=== PATIENT | male | born 1995 | race American Indian/Alaskan Native ===

== ENCOUNTER 2017-09-18 18:24 | Emergency (ER) | payer OTHER ==
[2017-09-18 18:49] VITALS: BP 140/75
--- NOTE | 2017-09-18 18:55 | EDM.PDOC ---
ED HPI GENERAL MEDICAL PROBLEM - General Chief Complaint: ENT Problem Stated Complaint: [id number] POSSIBLY STREP THROAT Time Seen by Provider: 09/18/17 18:54 Source of Information: Reports: Patient History Limitations: Reports: No Limitations - History of Present Illness INITIAL COMMENTS - FREE TEXT/NARRATIVE: sore throat & cough since Sunday, not getting better Throat Pain Score (Numeric/FACES): 4 - Related Data Allergies Allergy/AdvReac Type Severity Reaction Status Date / Time No Known Allergies Allergy Verified 06/26/15 08:39 Home Meds: Home Meds . [No Known Home Meds] 06/26/15 [History] Past Medical History - Past Health History Medical/Surgical History: Denies Medical/Surgical History Social & Family History - Family History Family Medical History: Noncontributory - Tobacco Use Smoking Status *Q: Never Smoker Second Hand Smoke Exposure: Yes - Caffeine Use Caffeine Use: Reports: Soda - Living Situation & Occupation Living situation: Reports: Single, with Family Occupation: Student ED ROS ENT - Review of Systems Review Of Systems: ROS reveals no pertinent complaints other than HPI. ED EXAM, ENT - Physical Exam Exam: See Below Exam Limited By: No Limitations General Appearance: Alert, WD/WN, Mild Distress, Other (upset) Ears: Hearing Grossly Normal Nose: Normal Inspection Mouth/Throat: Pharyngeal Erythema, Tonsillar Erythema, Tonsillar Swelling Head: Atraumatic Neck: Non-Tender, Full Range of Motion Respiratory/Chest: No Respiratory Distress, Lungs Clear, Normal Breath Sounds, No Accessory Muscle Use Cardiovascular: Regular Rate, Rhythm GI/Abdominal: Soft, Non-Tender Neurological: Alert, Oriented, Normal Cognition, Normal Gait, No Motor/Sensory Deficits Psychiatric: Flat Affect Skin: Warm, Dry, Normal Color Lymphatic: No Adenopathy Course - Vital Signs Last Recorded V/S: Last Vital Signs Temp 37.0 C 09/18/17 18:34 Pulse 92 09/18/17 18:34 Resp 16 09/18/17 18:34 BP 140/75 09/18/17 18:34 Pulse Ox 100 09/18/17 18:34 - Orders/Labs/Meds Orders: Active Orders 24 hr Category Date Time Status CULTURE STREP A CONFIRMATION [RM] Stat Lab 09/18/17 18:43 Results STREP SCRN A RAPID W CULT CONF [RM] Stat Lab 09/18/17 18:43 Results Amoxicillin [Amoxil] Med 09/18/17 19:45 Once 500 mg PO ONETIME ONE - Re-Assessments/Exams Free Text/Narrative Re-Assessment/Exam: 09/18/17 19:46 results discussed with pt Departure - Departure Time of Disposition: 19:46 Disposition: Home, Self-Care 01 Condition: Good Clinical Impression: Tonsillitis - Discharge Information Instructions: Tonsillitis, [id number] Referrals: PCP,None [Primary Care Provider] - Forms: ED Department Discharge Additional Instructions: 1) avoid solid foods next 48 hours 2) have liquids & soft foods. 3) follow up at clinic rx given; amox 250mg tid x 30 - My Orders Last 24 Hours: My Active Orders 09/18/17 19:45 Amoxicillin [Amoxil] 500 mg PO ONETIME ONE - Assessment/Plan Last 24 Hours: My Active Orders 09/18/17 19:45 Amoxicillin [Amoxil] 500 mg PO ONETIME ONE
[2017-09-18] MEDS ORDERED: Amoxicillin 500 MG Cap PO ONE (19:45)
== END 2017-09-18 19:54 | disposition home or self-care (01) ==
LOC: DL.ED 18:24
DX: J03.90 Acute tonsillitis, unspecified (principal)
CPT/HCPCS: 87081; 87430; 99283; A9270

== ENCOUNTER 2018-06-30 11:39 | Emergency (ER) | payer MEDICAID, OTHER ==
[2018-06-30 12:04] VITALS: BP 132/87
--- NOTE | 2018-06-30 13:22 | EDM.PDOC ---
ED HPI GENERAL MEDICAL PROBLEM - General Chief Complaint: Respiratory Problem Stated Complaint: THROAT AND LUNGS [id number] Time Seen by Provider: 06/30/18 13:20 Source of Information: Reports: Patient History Limitations: Reports: No Limitations - History of Present Illness INITIAL COMMENTS - FREE TEXT/NARRATIVE: been sick few days sister is sick, coughing sore throat feverish. - Related Data Allergies Allergy/AdvReac Type Severity Reaction Status Date / Time No Known Allergies Allergy Verified 06/30/18 12:04 Home Meds: Home Meds . [No Known Home Meds] 06/26/15 [History] Past Medical History - Past Health History Medical/Surgical History: Denies Medical/Surgical History Social & Family History - Family History Family Medical History: Noncontributory - Tobacco Use Smoking Status *Q: Never Smoker Second Hand Smoke Exposure: Yes - Caffeine Use Caffeine Use: Reports: Soda - Recreational Drug Use Recreational Drug Use: No - Living Situation & Occupation Living situation: Reports: Single, with Family Occupation: Student ED ROS GENERAL - Review of Systems Review Of Systems: ROS reveals no pertinent complaints other than HPI. ED EXAM, GENERAL - Physical Exam Exam: See Below Exam Limited By: No Limitations General Appearance: Alert, WD/WN, No Apparent Distress, Anxious Ears: Hearing Grossly Normal Throat/Mouth: Normal Voice, No Airway Compromise, Inflammation Head: Atraumatic Neck: Non-Tender, Full Range of Motion Respiratory/Chest: No Respiratory Distress Cardiovascular: Regular Rate, Rhythm GI/Abdominal: Soft, Non-Tender Neurological: Alert, Oriented, Normal Cognition, Normal Gait, No Motor/Sensory Deficits Psychiatric: Flat Affect Skin Exam: Warm, Dry, Normal Color Lymphatic: No Adenopathy Course - Vital Signs Last Recorded V/S: Last Vital Signs Temp 36.3 C 06/30/18 12:00 Pulse 89 06/30/18 12:00 Resp 18 06/30/18 12:00 BP 132/87 06/30/18 12:00 Pulse Ox 96 06/30/18 12:00 - Orders/Labs/Meds Orders: Active Orders 24 hr Category Date Time Status CULTURE STREP A CONFIRMATION [] Stat Lab 06/30/18 12:14 Results STREP SCRN A RAPID W CULT CONF [RM] Stat Lab 06/30/18 12:14 Results - Re-Assessments/Exams Free Text/Narrative Re-Assessment/Exam: 06/30/18 13:30 results discussed with pt Departure - Departure Time of Disposition: 13:31 Disposition: Home, Self-Care 01 Condition: Good Clinical Impression: Acute bronchitis with bronchospasm, Tonsillopharyngitis - Discharge Information Instructions: Upper Respiratory Infection, Adult, [id number] Forms: ED Department Discharge Additional Instructions: 1) rest 2) drink lots of liquids 3) don't sleep flat at night rx given; albuterol 2.5mg solution tid prn z-codey - My Orders Last 24 Hours: My Active Orders 06/30/18 12:14 CULTURE STREP A CONFIRMATION [RM] Stat STREP SCRN A RAPID W CULT CONF [RM] Stat - Assessment/Plan Last 24 Hours: My Active Orders 06/30/18 12:14 CULTURE STREP A CONFIRMATION [RM] Stat STREP SCRN A RAPID W CULT CONF [RM] Stat
== END 2018-06-30 13:36 | disposition home or self-care (01) ==
LOC: DL.ED 11:39
DX: J20.9 Acute bronchitis, unspecified (principal); J03.90 Acute tonsillitis, unspecified; Z77.22 Contact with and (suspected) exposure to environmental tobacco smoke (acute) (chronic)
CPT/HCPCS: 87081; 87430; 87804; 99283

== ENCOUNTER 2020-02-07 11:53 | Emergency (ER) | payer MEDICAID | END 2020-02-07 14:28 | disposition home or self-care (01) | LOC: DL.ED 11:53 | DX: U07.1 COVID-19 (principal) | CPT/HCPCS: 99282; 99283; U0002 ==

== ENCOUNTER 2020-02-14 18:42 | Inpatient (IN) | payer MEDICAID ==
[2020-02-14] MEDS ORDERED: Dexamethasone 4 MG/ML SDV IVPUSH ONE (18:45)
--- NOTE | 2020-02-14 18:53 | EDM.PDOC ---
ED HPI GENERAL MEDICAL PROBLEM - General Stated Complaint: COVID - CHEST XRAY Time Seen by Provider: 02/14/20 18:50 Source of Information: Reports: Patient History Limitations: Reports: No Limitations - History of Present Illness INITIAL COMMENTS - FREE TEXT/NARRATIVE: positive covid last Sunday not getting better and now having SOB and chest hurts covid nurse told him to come to ER. PT FULL CODE - Related Data Allergies Allergy/AdvReac Type Severity Reaction Status Date / Time No Known Allergies Allergy Verified 06/30/18 12:04 Home Meds: Home Meds . [No Known Home Meds] 06/26/15 [History] Past Medical History - Past Health History Medical/Surgical History: Denies Medical/Surgical History HEENT History: Reports: None Cardiovascular History: Reports: None Respiratory History: Reports: None Gastrointestinal History: Reports: None Genitourinary History: Reports: None Musculoskeletal History: Reports: None Neurological History: Reports: None Psychiatric History: Reports: None Endocrine/Metabolic History: Reports: None Hematologic History: Reports: None Immunologic History: Reports: None Oncologic (Cancer) History: Reports: None Dermatologic History: Reports: None - Infectious Disease History Infectious Disease History: Reports: None - Past Surgical History Head Surgeries/Procedures: Reports: None Social & Family History - Family History Family Medical History: Noncontributory - Caffeine Use Caffeine Use: Reports: Coffee - Living Situation & Occupation Living situation: Reports: Single, with Family Occupation: Student ED ROS GENERAL - Review of Systems Review Of Systems: Comprehensive ROS is negative, except as noted in HPI. ED EXAM, GENERAL - Physical Exam Exam: See Below Exam Limited By: No Limitations General Appearance: Alert, WD/WN, Mild Distress, Other (discomfort) Ears: Hearing Grossly Normal Throat/Mouth: Normal Voice, No Airway Compromise Head: Atraumatic Neck: Non-Tender, Full Range of Motion Respiratory/Chest: No Respiratory Distress, No Accessory Muscle Use, Rhonchi Cardiovascular: Regular Rate, Rhythm GI/Abdominal: Soft, Non-Tender (Male) Exam: Deferred Rectal (Males) Exam: Deferred Neurological: Alert, Oriented, Normal Cognition, Normal Gait, No Motor/Sensory D eficits Psychiatric: Normal Affect, Normal Mood Skin Exam: Warm, Dry, Normal Color Lymphatic: No Adenopathy Course - Vital Signs Last Recorded V/S: Last Vital Signs Temp 36.6 C 02/14/20 19:15 Pulse 98 02/14/20 19:15 Resp 20 02/14/20 19:15 BP 129/75 02/14/20 19:15 Pulse Ox 92 L 02/14/20 19:15 - Orders/Labs/Meds Orders: Active Orders 24 hr Category Date Time Status CULTURE BLOOD [BC] Stat Lab 02/14/20 19:02 Received Sodium Chloride 0.9% [Normal Saline] 1,000 ml Med 02/14/20 18:45 Active IV ASDIRECTED Medication Orders Sodium Chloride (Normal Saline) 1,000 mls @ 150 mls/hr IV ASDIRECTED MICHELLE Last Admin: 02/14/20 19:09 Dose: 150 mls/hr Documented by: ANDREW Labs: Laboratory Tests 02/14/20 02/14/20 02/14/20 Range/Units 19:02 19:02 19:02 WBC 6.0 (5.0-10.0) 10^3/uL RBC 5.88 (4.6-6.2) 10^6/uL Hgb 16.7 (14.0-18.0) g/dL Hct 47.5 (40.0-54.0) % MCV 80.8 (80-100) fL MCH 28.4 (27.0-34.0) pg MCHC 35.2 H (33.0-35.0) g/dL Plt Count 165 (150-450) 10^3/uL Neut % (Auto) 66.8 (42.2-75.2) % Lymph % (Auto) 20.6 (20.5-50.1) % [place] % (Auto) 12.1 H (2-8) % Eos % (Auto) 0.3 L (1.0-3.0) % Baso % (Auto) 0.2 (0.0-1.0) % Add Manual Diff Yes Neutrophils % (Manual) 63 (42-75) % Band Neutrophils % 4 % Lymphocytes % (Manual) 22 (20-50) % Monocytes % (Manual) 10 H (2-8) % Eosinophils % (Manual) 1 (1-3) % Sodium 136 (136-145) mmol/L Potassium 3.1 L (3.5-5.1) mmol/L Chloride 99 (98-107) mmol/L Carbon Dioxide 28 (21-32) mmol/L Anion Gap 12.1 (7-13) mEq/L BUN 21 H (7-18) mg/dL Creatinine 0.99 (0.70-1.30) mg/dL Est Cr Clr Drug Dosing TNP Estimated GFR (MDRD) > 60 BUN/Creatinine Ratio 21.2 (No establ ref range) Glucose 124 H (74-99) mg/dL Lactic Acid 0.9 (0.4-2.0) mmol/L Calcium 8.3 L (8.5-10.1) mg/dL Total Bilirubin 0.9 (0.2-1.0) mg/dL AST 37 (15-37) U/L ALT 41 (16-63) U/L Alkaline Phosphatase 88 (46-116) U/L Troponin I (0.000-0.056) ng/mL Total Protein 7.6 (6.4-8.2) g/dL Albumin 3.5 (3.4-5.0) g/dL Globulin 4.1 Albumin/Globulin Ratio 0.9 10/24/20 Range/Units 19:02 WBC (5.0-10.0) 10^3/uL RBC (4.6-6.2) 10^6/uL Hgb (14.0-18.0) g/dL Hct (40.0-54.0) % MCV (80-100) fL MCH (27.0-34.0) pg MCHC (33.0-35.0) g/dL Plt Count (150-450) 10^3/uL Neut % (Auto) (42.2-75.2) % Lymph % (Auto) (20.5-50.1) % [place] % (Auto) (2-8) % Eos % (Auto) (1.0-3.0) % Baso % (Auto) (0.0-1.0) % Add Manual Diff Neutrophils % (Manual) (42-75) % Band Neutrophils % % Lymphocytes % (Manual) (20-50) % Monocytes % (Manual) (2-8) % Eosinophils % (Manual) (1-3) % Sodium (136-145) mmol/L Potassium (3.5-5.1) mmol/L Chloride (98-107) mmol/L Carbon Dioxide (21-32) mmol/L Anion Gap (7-13) mEq/L BUN (7-18) mg/dL Creatinine (0.70-1.30) mg/dL Est Cr Clr Drug Dosing Estimated GFR (MDRD) BUN/Creatinine Ratio (No establ ref range) Glucose (74-99) mg/dL Lactic Acid (0.4-2.0) mmol/L Calcium (8.5-10.1) mg/dL Total Bilirubin (0.2-1.0) mg/dL AST (15-37) U/L ALT (16-63) U/L Alkaline Phosphatase (46-116) U/L Troponin I < 0.017 (0.000-0.056) ng/mL Total Protein (6.4-8.2) g/dL Albumin (3.4-5.0) g/dL Globulin Albumin/Globulin Ratio Meds: Medications Generic Name Dose Route Start Last Admin Trade Name Freq PRN Reason Stop Dose Admin Sodium Chloride 1,000 mls @ 150 mls/hr 02/14/20 18:45 02/14/20 19:09 Normal Saline IV 150 mls/hr ASDIRECTED MICHELLE Administration Discontinued Medications Generic Name Dose Route Start Last Admin Trade Name Freq PRN Reason Stop Dose Admin Dexamethasone 12 mg 02/14/20 18:45 02/14/20 19:09 Dexamethasone IVPUSH 02/14/20 18:46 12 mg ONETIME ONE Administration - Re-Assessments/Exams Free Text/Narrative Re-Assessment/Exam: 02/14/20 20:[address] Leonard who kindly admitted pt. Departure - Departure Time of Disposition: 20:38 Disposition: Admitted As Inpatient 66 Condition: Good Clinical Impression: Pneumonia due to COVID-19 virus, Hypokalemia - Discharge Information Forms: ED Department Discharge Sepsis Event Note (ED) - Focused Exam Vital Signs: Vital Signs Temp Pulse Resp BP Pulse Ox 02/14/20 19:15 36.6 C 98 20 129/75 92 L - My Orders Last 24 Hours: My Active Orders 02/14/20 18:45 Sodium Chloride 0.9% [Normal Saline] 1,000 ml IV ASDIRECTED 02/14/20 19:02 CULTURE BLOOD [BC] Stat - Assessment/Plan Last 24 Hours: My Active Orders 02/14/20 18:45 Sodium Chloride 0.9% [Normal Saline] 1,000 ml IV ASDIRECTED 02/14/20 19:02 CULTURE BLOOD [BC] Stat
[2020-02-14] MEDS: Sodium Chloride 0.9% 1,000 ML IV SCH (19:09)
[2020-02-14 19:30] LABS: ANION GAP 12.1 mEq/L (7-13); CHLORIDE,CL 99 mmol/L (98-107); SODIUM,NA 136 mmol/L (136-145)
--- NOTE | 2020-02-14 19:55 | CT ---
PROCEDURE INFORMATION: Exam: CT Chest Without Contrast Exam date and time: 02/14/2020 7:24 PM Age: 24 years old Clinical indication: Cough and shortness of breath; Additional info: R/O covid pneumonia TECHNIQUE: Imaging protocol: Computed tomography of the chest without contrast. Radiation optimization: All CT scans at this facility use at least one of these dose optimization techniques: automated exposure control; mA and/or kV adjustment per patient size (includes targeted exams where dose is matched to clinical indication); or iterative reconstruction. COMPARISON: No relevant prior studies available. FINDINGS: Lungs: Lung windows show bilateral ground-glass and alveolar opacities, mainly seen at the periphery of the lungs and especially in the lower lobes. The central airways are widely patent. Pleural space: There are no pleural effusions. There is no pneumothorax. Heart: The heart size is normal. There is no pericardial effusion. Aorta: The thoracic aorta is normal in caliber and contour. Lymph nodes: No pathologically enlarged mediastinal, hilar or axillary lymph nodes are identified. Bones/joints: There is normal alignment throughout the visualized portion of the spine. No acute fractures or aggressive bone lesions are identified. Soft tissues: Within normal limits. IMPRESSION: Bilateral peripheral ground-glass and alveolar opacities consistent with COVID-19 pneumonia.
--- NOTE | 2020-02-14 21:24 | PCM.HP ---
H&P History of Present Illness - General Date of Service: 02/14/20 Admit Problem/Dx: Admission Diagnosis/Problem Admission Diagnosis/Problem Positive COVID-19 with Pneumonia Source of Information: Patient, Old Records History Limitations: Reports: No Limitations - History of Present Illness Initial Comments - Free Text/Narative: This is a 24 Y/O M with no significant past medical history came to ER with complain of increased shortness of breath galen chest heaviness, he is tested positive covid last Sunday ( 02/07/20) , has not received and treatment for COVID , not getting better and was told by covid nurse to come to ER. He had CT chest in ER and it showed B/L peripheral ground-glass and alveolar opacities consistent with COVID-19 pneumonia. He is now admitted for Covid-19 Pneumonia. Onset of Symptoms: Reports: Gradual Duration of Symptoms: Reports: Day(s): Quality: Reports: Pressure - Related Data Allergies/Adverse Reactions: Allergies Allergy/AdvReac Type Severity Reaction Status Date / Time No Known Allergies Allergy Verified 06/30/18 12:04 Home Medications: Home Meds . [No Known Home Meds] 06/26/15 [History] Past Medical History - Past Health History Medical/Surgical History: Denies Medical/Surgical History HEENT History: Reports: None Cardiovascular History: Reports: None Respiratory History: Reports: None Gastrointestinal History: Reports: None Genitourinary History: Reports: None Musculoskeletal History: Reports: None Neurological History: Reports: None Psychiatric History: Reports: None Endocrine/Metabolic History: Reports: None Hematologic History: Reports: None Immunologic History: Reports: None Oncologic (Cancer) History: Reports: None Dermatologic History: Reports: None - Infectious Disease History Infectious Disease History: Reports: None Other Infectious Disease History: covid - Past Surgical History Head Surgeries/Procedures: Reports: None Social & Family History - Family History Family Medical History: Noncontributory - Tobacco Use Tobacco Use Status *Q: Never Tobacco User Second Hand Smoke Exposure: No - Caffeine Use Caffeine Use: Reports: Coffee - Recreational Drug Use Recreational Drug Use: No - Living Situation & Occupation Living situation: Reports: Single, with Family Occupation: Student H&P Review of Systems - Review of Systems: Review Of Systems: See Below General: Reports: Fever (low grade), Weakness HEENT: Denies: Headaches, Sinus Congestion, Sore Throat, Visual Changes Cardiovascular: Denies: Chest Pain, Edema, Lightheadedness Gastrointestinal: Denies: Diarrhea, Difficulty Swallowing, Nausea, Vomiting Genitourinary: Denies: Dysuria, Burning, Urgency, Flank Pain Musculoskeletal: Denies: Neck Pain, Shoulder Pain, Leg Pain, Muscle Stiffness Skin: Denies: Cyanosis, Jaundice, Bruising, Pruritis, Rash Psychiatric: Denies: Confusion, Anxiety Neurological: Denies: Confusion, Tremors, Weakness Hematologic/Lymphatic: Reports: No Symptoms Immunologic: Reports: No Symptoms Exam - Exam Exam: See Below - Vital Signs Vital Signs: Last Vital Signs Temp 36.6 C 02/14/20 19:15 Pulse 99 02/14/20 20:37 Resp 20 02/14/20 20:37 BP 129/75 02/14/20 19:15 Pulse Ox 96 02/14/20 20:37 Weight: 99.79 kg - Exam Quality Assessment: Supplemental Oxygen, DVT Prophylaxis. No: Urinary Catheter General: Alert, Oriented, Cooperative HEENT: Conjunctiva Clear, EOMI, Pupils Equal Neck: Supple. No: JVD, Thyromegaly Lungs: Clear to Auscultation, Normal Respiratory Effort, Decreased Breath Sounds Cardiovascular: Regular Rate, Regular Rhythm GI/Abdominal Exam: Normal Bowel Sounds, No Distention. No: Rigid, Rebound (Male) Exam: Deferred Rectal (Males) Exam: Normal Exam, Normal Rectal Tone, Deferred Back Exam: Normal Inspection, Full Range of Motion Extremities: Normal Inspection, No Pedal Edema Skin: Warm, Intact Neurological: Cranial Nerves Intact, Reflexes Equal Bilateral Neuro Extensive - Mental Status: Alert, Oriented x3, Normal Mood/Affect, Memory Intact Neuro Extensive - Motor, Sensory, Reflexes: CN II-XII Intact, Normal Gait, Normal Reflexes Psychiatric: Alert, Normal Affect, Normal Mood - Patient Data Lab Results Last 24 hrs: Laboratory Results - last 24 hr 02/14/20 02/14/20 02/14/20 Range/Units 19:02 19:02 19:02 WBC 6.0 (5.0-10.0) 10^3/uL RBC 5.88 (4.6-6.2) 10^6/uL Hgb 16.7 (14.0-18.0) g/dL Hct 47.5 (40.0-54.0) % MCV 80.8 (80-100) fL MCH 28.4 (27.0-34.0) pg MCHC 35.2 H (33.0-35.0) g/dL Plt Count 165 (150-450) 10^3/uL Neut % (Auto) 66.8 (42.2-75.2) % Lymph % (Auto) 20.6 (20.5-50.1) % [place] % (Auto) 12.1 H (2-8) % Eos % (Auto) 0.3 L (1.0-3.0) % Baso % (Auto) 0.2 (0.0-1.0) % Add Manual Diff Yes Neutrophils % (Manual) 63 (42-75) % Band Neutrophils % 4 % Lymphocytes % (Manual) 22 (20-50) % Monocytes % (Manual) 10 H (2-8) % Eosinophils % (Manual) 1 (1-3) % Sodium 136 (136-145) mmol/L Potassium 3.1 L (3.5-5.1) mmol/L Chloride 99 (98-107) mmol/L Carbon Dioxide 28 (21-32) mmol/L Anion Gap 12.1 (7-13) mEq/L BUN 21 H (7-18) mg/dL Creatinine 0.99 (0.70-1.30) mg/dL Est Cr Clr Drug Dosing TNP Estimated GFR (MDRD) > 60 BUN/Creatinine Ratio 21.2 (No establ ref range) Glucose 124 H (74-99) mg/dL Lactic Acid 0.9 (0.4-2.0) mmol/L Calcium 8.3 L (8.5-10.1) mg/dL Total Bilirubin 0.9 (0.2-1.0) mg/dL AST 37 (15-37) U/L ALT 41 (16-63) U/L Alkaline Phosphatase 88 (46-116) U/L Troponin I (0.000-0.056) ng/mL Total Protein 7.6 (6.4-8.2) g/dL Albumin 3.5 (3.4-5.0) g/dL Globulin 4.1 Albumin/Globulin Ratio 0.9 10/24/20 Range/Units 19:02 WBC (5.0-10.0) 10^3/uL RBC (4.6-6.2) 10^6/uL Hgb (14.0-18.0) g/dL Hct (40.0-54.0) % MCV (80-100) fL MCH (27.0-34.0) pg MCHC (33.0-35.0) g/dL Plt Count (150-450) 10^3/uL Neut % (Auto) (42.2-75.2) % Lymph % (Auto) (20.5-50.1) % [place] % (Auto) (2-8) % Eos % (Auto) (1.0-3.0) % Baso % (Auto) (0.0-1.0) % Add Manual Diff Neutrophils % (Manual) (42-75) % Band Neutrophils % % Lymphocytes % (Manual) (20-50) % Monocytes % (Manual) (2-8) % Eosinophils % (Manual) (1-3) % Sodium (136-145) mmol/L Potassium (3.5-5.1) mmol/L Chloride (98-107) mmol/L Carbon Dioxide (21-32) mmol/L Anion Gap (7-13) mEq/L BUN (7-18) mg/dL Creatinine (0.70-1.30) mg/dL Est Cr Clr Drug Dosing Estimated GFR (MDRD) BUN/Creatinine Ratio (No establ ref range) Glucose (74-99) mg/dL Lactic Acid (0.4-2.0) mmol/L Calcium (8.5-10.1) mg/dL Total Bilirubin (0.2-1.0) mg/dL AST (15-37) U/L ALT (16-63) U/L Alkaline Phosphatase (46-116) U/L Troponin I < 0.017 (0.000-0.056) ng/mL Total Protein (6.4-8.2) g/dL Albumin (3.4-5.0) g/dL Globulin Albumin/Globulin Ratio Result Diagrams: 02/14/20 19:02 02/14/20 19:02 - Problem List (1) Pneumonia due to COVID-19 virus SNOMED Code(s): 725741336614007492 ICD Code: U07.1 - COVID-19; J12.89 - OTHER VIRAL PNEUMONIA Status: Acute Current Visit: No Problem List Initiated/Reviewed/Updated: Yes Orders Last 24hrs: Active Orders 24 hr Category Date Time Status Admission Diagnosis [ADT] Stat ADT 02/14/20 20:39 Ordered Admission Status [Patient Status] [ADT] Routine ADT 02/14/20 20:39 Active CULTURE BLOOD [BC] Stat Lab 02/14/20 19:02 Received Sodium Chloride 0.9% [Normal Saline] 1,000 ml Med 02/14/20 18:45 Active IV ASDIRECTED Medication Orders Sodium Chloride (Normal Saline) 1,000 mls @ 150 mls/hr IV ASDIRECTED MICHELLE Last Admin: 02/14/20 19:09 Dose: 150 mls/hr Documented by: ANDREW Assessment/Plan Comment:: This is a 24 Y/O M with no significant past medical history came to ER with complain of increased shortness of breath galen chest heaviness, he is tested positive covid last Sunday ( 02/07/20) , has not received and treatment for COVID , not getting better and was told by covid nurse to come to ER. He had CT chest in ER and it showed B/L peripheral ground-glass and alveolar opacities consistent with COVID-19 pneumonia. He is now admitted for Covid-19 Pneumonia. Impression and Plan: 1. Covid-19 pneumonia: The pt was dxed with COVOD-19 on last Sunday ( 02/07/20) and has not received any treatment but now his symptom getting worseCT chest consistent with COVID-19 pneumonia -Will admit in isolation room -Will contiue NC oxygen to keep 02 sat >90 -Discuss with pt about starting treatment with Redisivir and Dexamethasone -He has received a dose of Dexamethasone 12 mg IV push in ER -Will also start Levofloxacin 750 mg IV daily -Will check daily Covid Lab 2. Hypokalemia: Will give potassium chloride 40 meq now and another 20 meq 2 hrs larer -Recheck potassium in AM 3. DVT prophylaxis: Heparin 5000 units TID Code Status: Full code
[2020-02-14] MEDS ORDERED: Docusate Sodium 100 MG Cap PO PRN (21:47)
[2020-02-14] MEDS ORDERED: Potassium Chloride 10 MEQ Tab.ER PO ONE (22:21)
[2020-02-14] MEDS: Levofloxacin/Dextrose 5%-Water 750 MG in Premix Bag 1 BAG IV SCH (23:07)
[2020-02-14] MEDS: Acetaminophen 325 MG Tab PO PRN (23:08)
[2020-02-14] MEDS: Heparin Sodium 5,000 Units/ML Vial SUBCUT SCH (23:09)
[2020-02-15] MEDS: Sodium Chloride 0.9% 1,000 ML IV SCH ×3 (05:45→19:33)
[2020-02-15] MEDS: Heparin Sodium 5,000 Units/ML Vial SUBCUT SCH ×3 (05:46→21:57)
[2020-02-15 07:00] LABS: ANION GAP 11.1 mEq/L (7-13); CHLORIDE,CL 103 mmol/L (98-107); SODIUM,NA 139 mmol/L (136-145)
[2020-02-15] MEDS: Dexamethasone 4 MG/ML SDV IVPUSH SCH (08:34)
--- NOTE | 2020-02-15 14:37 | PCM.PN ---
- General Info Date of Service: 02/15/20 Admission Dx/Problem (Free Text): Admission Diagnosis/Problem Admission Diagnosis/Problem Positive COVID-19 with Pneumonia Subjective Update: Pt was seen in Isolation room, He is doing well, No nausea or vomiting still on NC oxygen, no fever or chill Functional Status: Reports: Pain Controlled, Tolerating Diet, Ambulating, Urinating - Review of Systems General: Reports: Malaise, Appetite (good). Denies: Fever HEENT: Denies: Headaches, Sinus Congestion, Sore Throat, Visual Changes Pulmonary: Reports: Shortness of Breath. Denies: Cough, Wheezing Cardiovascular: Denies: Chest Pain, Dyspnea on Exertion, Lightheadedness Gastrointestinal: Denies: Abdominal Pain, Difficulty Swallowing, Nausea, Vomiting Genitourinary: Denies: Dysuria, Frequency, Flank Pain Musculoskeletal: Denies: Neck Pain, Leg Pain, Foot Pain, Joint Swelling Skin: Denies: Cyanosis, Jaundice, Diaphoresis, Bruising, Pruritis, Rash Neurological: Denies: Confusion, Numbness, Tremors Psychiatric: Denies: Confusion, Anxiety - Patient Data Vitals - Most Recent: Last Vital Signs Temp 37.2 C 02/15/20 12:00 Pulse 89 02/15/20 12:00 Resp 20 02/15/20 12:00 BP 126/80 02/15/20 12:00 Pulse Ox 97 02/15/20 12:00 Weight - Most Recent: 99.79 kg I&O - Last 24 Hours: Intake & Output 02/14/20 02/15/20 02/15/20 22:59 06:59 14:59 Intake Total 1480 360 Balance 1480 360 Lab Results Last 24 Hours: Laboratory Results - last 24 hr 02/14/20 02/14/20 02/14/20 Range/Units 19:02 19:02 19:02 WBC 6.0 (5.0-10.0) 10^3/uL RBC 5.88 (4.6-6.2) 10^6/uL Hgb 16.7 (14.0-18.0) g/dL Hct 47.5 (40.0-54.0) % MCV 80.8 (80-100) fL MCH 28.4 (27.0-34.0) pg MCHC 35.2 H (33.0-35.0) g/dL Plt Count 165 (150-450) 10^3/uL Neut % (Auto) 66.8 (42.2-75.2) % Lymph % (Auto) 20.6 (20.5-50.1) % [place] % (Auto) 12.1 H (2-8) % Eos % (Auto) 0.3 L (1.0-3.0) % Baso % (Auto) 0.2 (0.0-1.0) % Add Manual Diff Yes Neutrophils % (Manual) 63 (42-75) % Band Neutrophils % 4 % Lymphocytes % (Manual) 22 (20-50) % Monocytes % (Manual) 10 H (2-8) % Eosinophils % (Manual) 1 (1-3) % Sodium 136 (136-145) mmol/L Potassium 3.1 L (3.5-5.1) mmol/L Chloride 99 (98-107) mmol/L Carbon Dioxide 28 (21-32) mmol/L Anion Gap 12.1 (7-13) mEq/L BUN 21 H (7-18) mg/dL Creatinine 0.99 (0.70-1.30) mg/dL Est Cr Clr Drug Dosing TNP Estimated GFR (MDRD) > 60 BUN/Creatinine Ratio 21.2 (No establ ref range) Glucose 124 H (74-99) mg/dL Lactic Acid 0.9 (0.4-2.0) mmol/L Calcium 8.3 L (8.5-10.1) mg/dL Total Bilirubin 0.9 (0.2-1.0) mg/dL AST 37 (15-37) U/L ALT 41 (16-63) U/L Alkaline Phosphatase 88 (46-116) U/L Troponin I (0.000-0.056) ng/mL Total Protein 7.6 (6.4-8.2) g/dL Albumin 3.5 (3.4-5.0) g/dL Globulin 4.1 Albumin/Globulin Ratio 0.9 02/14/20 02/15/20 02/15/20 Range/Units 19:02 06:18 06:18 WBC 3.6 L (5.0-10.0) 10^3/uL RBC 5.61 (4.6-6.2) 10^6/uL Hgb 15.7 (14.0-18.0) g/dL Hct 45.7 (40.0-54.0) % MCV 81.5 (80-100) fL MCH 28.0 (27.0-34.0) pg MCHC 34.4 (33.0-35.0) g/dL Plt Count 183 (150-450) 10^3/uL Neut % (Auto) 63.6 (42.2-75.2) % Lymph % (Auto) 21.5 (20.5-50.1) % [place] % (Auto) 14.6 H (2-8) % Eos % (Auto) 0.0 L (1.0-3.0) % Baso % (Auto) 0.3 (0.0-1.0) % Add Manual Diff Neutrophils % (Manual) (42-75) % Band Neutrophils % % Lymphocytes % (Manual) (20-50) % Monocytes % (Manual) (2-8) % Eosinophils % (Manual) (1-3) % Sodium 139 (136-145) mmol/L Potassium 4.1 (3.5-5.1) mmol/L Chloride 103 (98-107) mmol/L Carbon Dioxide 29 (21-32) mmol/L Anion Gap 11.1 (7-13) mEq/L BUN 20 H (7-18) mg/dL Creatinine 0.88 (0.70-1.30) mg/dL Est Cr Clr Drug Dosing 150.49 Estimated GFR (MDRD) > 60 BUN/Creatinine Ratio (No establ ref range) Glucose 116 H (74-99) mg/dL Lactic Acid (0.4-2.0) mmol/L Calcium 8.3 L (8.5-10.1) mg/dL Total Bilirubin (0.2-1.0) mg/dL AST (15-37) U/L ALT (16-63) U/L Alkaline Phosphatase (46-116) U/L Troponin I < 0.017 (0.000-0.056) ng/mL Total Protein (6.4-8.2) g/dL Albumin (3.4-5.0) g/dL Globulin Albumin/Globulin Ratio Med Orders - Current: Current Medications Acetaminophen (Tylenol) 650 mg PO Q4H PRN PRN Reason: Pain (mild 1-3 )/fever Last Admin: 10/24/20 23:08 Dose: 650 mg Documented by: Dexamethasone (Dexamethasone) 6 mg IVPUSH DAILY [facility] Last Admin: 02/15/20 08:34 Dose: 6 mg Documented by: Docusate Sodium (Colace) 100 mg PO DAILY PRN PRN Reason: Constipation Heparin Sodium (Porcine) (Heparin Sodium) 5,000 units SUBCUT Q8H [facility] Last Admin: 02/15/20 13:44 Dose: 5,000 units Documented by: Sodium Chloride (Normal Saline) 1,000 mls @ 150 mls/hr IV ASDIRECTED [facility] Last Admin: 02/15/20 05:45 Dose: 150 mls/hr Documented by: Levofloxacin/Dextrose 750 mg/ (Premix) 150 mls @ 100 mls/hr IV Q24H [facility] Last Admin: 02/14/20 23:07 Dose: 100 mls/hr Documented by: Remdesivir 100 mg/ Sodium (Chloride) 230 mls @ 230 mls/hr IV Q24H [facility] Stop: 02/18/20 21:59 Discontinued Medications Dexamethasone (Dexamethasone) 12 mg IVPUSH ONETIME ONE Stop: 02/14/20 18:46 Last Admin: 02/14/20 19:09 Dose: 12 mg Documented by: Remdesivir 200 mg/ Sodium (Chloride) 210 mls @ 210 mls/hr IV ONETIME ONE Stop: 02/14/20 22:11 Last Admin: 02/14/20 23:06 Dose: 210 mls/hr Documented by: Potassium Chloride (Klor-Con 10) 40 meq PO ONETIME ONE Stop: 02/14/20 22:22 Last Admin: 02/14/20 23:08 Dose: 40 meq Documented by: - Exam Quality Assessment: Supplemental Oxygen, DVT Prophylaxis. No: Central Line/PICC, Urine Catheter General: Alert, Oriented, Cooperative, No Acute Distress HEENT: Pupils Equal, Pupils Reactive, EOMI, Mucous Membr. Moist/[place] Neck: Supple, No JVD, No Thyromegaly Lungs: Clear to Auscultation, Normal Respiratory Effort, Decreased Breath Sounds Cardiovascular: Regular Rate, Regular Rhythm, No Murmurs GI/Abdominal Exam: Normal Bowel Sounds, Non-Tender, No Distention. No: Rebound (Male) Exam: Deferred Back Exam: Normal Inspection, Full Range of Motion Extremities: Normal Inspection, No Pedal Edema Skin: Warm, Dry, Intact Neurological: No New Focal Deficit Psy/Mental Status: Alert, Normal Affect, Normal Mood Sepsis Event Note - Evaluation Sepsis Screening Result: No Definite Risk - Focused Exam Vital Signs: Vital Signs Temp Pulse Resp BP BP Pulse Ox 02/15/20 12:00 37.2 C 89 20 126/80 97 02/15/20 08:00 36.7 C 83 20 120/74 96 02/15/20 04:00 37.2 C 80 20 134/68 95 - Problem List & Annotations (1) Pneumonia due to COVID-19 virus SNOMED Code(s): 270917083224990102 Code(s): U07.1 - COVID-19; J12.89 - OTHER VIRAL PNEUMONIA Status: Acute Current Visit: No - Problem List Review Problem List Initiated/Reviewed/Updated: Yes - My Orders Last 24 Hours: My Active Orders 02/14/20 21:47 Patient Status [ADT] Routine Up With Assistance [RC] ASDIRECTED Vital Signs [RC] 00,04,08,12,16,20 Acetaminophen [TylenoL] 650 mg PO Q4H PRN Docusate Sodium [Colace] 100 mg PO DAILY PRN DVT Prophylaxis Not on Coumadin Therapy [AST] Routine DVT/VTE Prophylaxis Reflex [OM.PC] Routine Resuscitation Status Routine 02/14/20 21:49 Oxygen Therapy [RC] CONTINUOUS Pulse Oximetry [RC] PRN 02/14/20 21:50 Antiembolic Devices [RC] .Routine VTE/DVT Education [RC] PER UNIT ROUTINE 02/14/20 22:00 Heparin Sodium 5,000 units SUBCUT Q8H Levofloxacin/Dextrose 5%-Water [Levaquin in D5W 750 MG/150 ML] 750 mg Premix Bag 1 bag IV Q24H 02/14/20 22:13 Isolation [COMM] Routine 02/14/20 22:52 Incentive Spirometry [RT Incentive Spirometry] [RC] Q1HWA 02/14/20 22:53 Flutter Valve Therapy [RT Chest Physiotherapy] [RC] Q1HWA 02/15/20 09:00 dexAMETHasone [Dexamethasone] 6 mg IVPUSH DAILY 02/15/20 21:00 Remdesivir (Eua) [Remdesivir (EUA)] 100 mg Sodium Chloride 0.9% [Normal Saline] 230 ml IV Q24H - Plan Plan:: This is a 24 Y/O M with no significant past medical history came to ER with complain of increased shortness of breath galen chest heaviness, he is tested positive covid last Sunday ( 02/07/20) , has not received and treatment for COVID , not getting better and was told by covid nurse to come to ER. He had CT chest in ER and it showed B/L peripheral ground-glass and alveolar opacities consistent with COVID-19 pneumonia. He is now admitted for Covid-19 Pneumonia. Impression and Plan: 1. Covid-19 pneumonia: The pt was dxed with COVOD-19 on last Sunday ( 02/07/20) and has not received any treatment but now his symptom getting worse CT chest consistent with COVID-19 pneumonia --Will contiue NC oxygen to keep 02 sat >90 and wean off as tolerated -Discuss with pt about starting treatment with Redisivir and Dexamethasone and he agreed to have those treatment -He has received a dose of Dexamethasone 12 mg IV push in ER and will continue with 6 mg IV daily -Will also continue Levofloxacin 750 mg IV daily -Will check daily Covid Lab -Will likely be able to go home on Sunday 2. Hypokalemia: Has received potassium chloride 60 meq and recheck potassium is acceptable 3. DVT prophylaxis: Heparin 5000 units TID Code Status: Full code
[2020-02-15] MEDS ORDERED: Sodium Chloride 0.9% 10 ML Syringe FLUSH PRN (20:50)
[2020-02-15] MEDS: Levofloxacin/Dextrose 5%-Water 750 MG in Premix Bag 1 BAG IV SCH (21:57)
[2020-02-15] MEDS: Acetaminophen 325 MG Tab PO PRN (23:36)
[2020-02-16] MEDS: Sodium Chloride 0.9% 1,000 ML IV SCH (04:05)
[2020-02-16] MEDS: Heparin Sodium 5,000 Units/ML Vial SUBCUT SCH ×2 (06:04→14:26)
[2020-02-16 07:56] VITALS: BP 120/75; PULSE 79
[2020-02-16] MEDS: Dexamethasone 4 MG/ML SDV IVPUSH SCH (09:30)
--- NOTE | 2020-02-16 12:10 | PCM.DCSUM1 ---
Discharge Summary - Hospital Course Free Text/Narrative:: 24-year-old male with no significant past medical history came to ER with complain of increased shortness of breath and chest heaviness. Patient had tested positive for COVID-19 on Sunday ( 02/07/20). Patient was hypoxic and required up to 2 L of oxygen by nasal cannula. CT scan showed bilateral peripheral groundglass and alveolar opacities consistent with COVID-19 pneumonia. Received treatment with remdesivir and dexamethasone. Clinical status improved. Diagnosis: Stroke: No - Discharge Data Discharge Date: 02/16/20 Discharge Disposition: Home, Self-Care 01 Condition: Good - Referral to Home Health Primary Care Physician: PCP None - Discharge Plan *PRESCRIPTION DRUG MONITORING PROGRAM REVIEWED*: Not Applicable *COPY OF PRESCRIPTION DRUG MONITORING REPORT IN PATIENT DANIEL: Not Applicable Prescriptions/Med Rec: Amoxicillin/Clavulanate K [Augmentin 875-125 MG] 1 tab PO BID #10 tablet dexAMETHasone [Dexamethasone] 6 mg PO DAILY #7 tab Rivaroxaban [Xarelto] 10 mg PO DAILY #30 tab Home Medications: Home Meds Amoxicillin/Clavulanate K [Augmentin 875-125 MG] 1 tab PO BID #10 tablet 02/16/20 [Rx] Rivaroxaban [Xarelto] 10 mg PO DAILY #30 tab 02/16/20 [Rx] dexAMETHasone [Dexamethasone] 6 mg PO DAILY #7 tab 02/16/20 [Rx] Patient Handouts: COVID-19 Frequently Asked Questions, COVID-19: How to Protect Yourself and Others - CDC, Infection Prevention in the Home, Prevent the Spread of COVID-19 if You Are Sick - [facility] Referrals: PCP,None [Primary Care Provider] - - Discharge Summary/Plan Comment DC Time >30 min.: Yes - General Info Admission Dx/Problem (Free Text: Admission Diagnosis/Problem Admission Diagnosis/Problem Positive COVID-19 with Pneumonia Subjective Update: Seen and examined today. No longer requiring oxygen. Still coughing. Denies chest pain. Afebrile overnight. Functional Status: Reports: Pain Controlled - Review of Systems General: Reports: No Symptoms HEENT: Reports: No Symptoms Pulmonary: Reports: Cough Cardiovascular: Reports: No Symptoms Gastrointestinal: Reports: No Symptoms Genitourinary: Reports: No Symptoms Musculoskeletal: Reports: No Symptoms Skin: Reports: No Symptoms Neurological: Reports: No Symptoms Psychiatric: Reports: No Symptoms - Patient Data Vitals - Most Recent: Last Vital Signs Temp 98.3 F 02/16/20 07:56 Pulse 79 02/16/20 07:56 Resp 18 02/16/20 07:56 BP 120/75 02/16/20 07:56 Pulse Ox 95 02/16/20 07:56 Weight - Most Recent: 220 lb I&O - Last 24 hours: Intake & Output 02/15/20 02/16/20 02/16/20 22:59 06:59 14:59 Intake Total 240 750 Balance 240 750 Lab Results - Last 24 hrs: Laboratory Results - last 24 hr 02/16/20 02/16/20 Range/Units 11:28 11:28 D-Dimer, Quantitative 276 (0-400) ng/mL Lactate Dehydrogenase 225 (85-227) U/L JENNIFER Results - Last 24 hrs: Microbiology 02/14/20 19:02 Aerobic Blood Culture - Preliminary Blood - Venous - Iv Start NO GROWTH AFTER 1 DAY Anaerobic Blood Culture - Preliminary NO GROWTH AFTER 1 DAY Med Orders - Current: Current Medications Acetaminophen (Tylenol) 650 mg PO Q4H PRN PRN Reason: Pain (mild 1-3 )/fever Last Admin: 02/15/20 23:36 Dose: 650 mg Documented by: Dexamethasone (Dexamethasone) 6 mg IVPUSH DAILY [facility] Last Admin: 02/16/20 09:30 Dose: 6 mg Documented by: Docusate Sodium (Colace) 100 mg PO DAILY PRN PRN Reason: Constipation Heparin Sodium (Porcine) (Heparin Sodium) 5,000 units SUBCUT Q8H [facility] Last Admin: 02/16/20 06:04 Dose: 5,000 units Documented by: Levofloxacin/Dextrose 750 mg/ (Premix) 150 mls @ 100 mls/hr IV Q24H [facility] Last Infusion: 02/15/20 23:50 Dose: Infused Documented by: Remdesivir 100 mg/ Sodium (Chloride) 230 mls @ 230 mls/hr IV Q24H [facility] Stop: 02/18/20 21:59 Last Infusion: 02/15/20 21:55 Dose: Infused Documented by: Sodium Chloride (Saline Flush) 10 ml FLUSH DAILY PRN PRN Reason: IV Use Last Admin: 02/15/20 21:56 Dose: 10 ml Documented by: Sodium Chloride (Saline Flush) 30 ml FLUSH DAILY@2200 [facility] Stop: 02/18/20 22:01 Discontinued Medications Dexamethasone (Dexamethasone) 12 mg IVPUSH ONETIME ONE Stop: 02/14/20 18:46 Last Admin: 02/14/20 19:09 Dose: 12 mg Documented by: Sodium Chloride (Normal Saline) 1,000 mls @ 150 mls/hr IV ASDIRECTED [facility] Last Admin: 02/16/20 04:05 Dose: 150 mls/hr Documented by: Remdesivir 200 mg/ Sodium (Chloride) 210 mls @ 210 mls/hr IV ONETIME ONE Stop: 02/14/20 22:11 Last Admin: 02/14/20 23:06 Dose: 210 mls/hr Documented by: Potassium Chloride (Klor-Con 10) 40 meq PO ONETIME ONE Stop: 02/14/20 22:22 Last Admin: 02/14/20 23:08 Dose: 40 meq Documented by: - Exam General: Reports: Alert, Oriented HEENT: Reports: Pupils Equal, Pupils Reactive, EOMI, Mucous Membr. Moist/[place] Neck: Reports: Supple Lungs: Reports: Clear to Auscultation, Normal Respiratory Effort Cardiovascular: Reports: Regular Rate, Regular Rhythm GI/Abdominal Exam: Normal Bowel Sounds, Soft, Non-Tender, No Organomegaly, No Distention, No Abnormal Bruit, No Mass, Pelvis Stable Back Exam: Reports: Normal Inspection, Full Range of Motion Extremities: Normal Inspection, Normal Range of Motion, Non-Tender, No Pedal Pranay ma, Normal Capillary Refill Skin: Reports: Warm, Dry, Intact Neurological: Reports: No New Focal Deficit Psy/Mental Status: Reports: Alert, Normal Affect, Normal Mood
[2020-02-16] MEDS ORDERED: Sodium Chloride 0.9% 10 ML Syringe FLUSH SCH (22:00)
== END 2020-02-16 14:20 | disposition home or self-care (01) | DRG 177 ==
LOC: DL.ED 18:42 → DL.MS 20:39
PROVIDERS: ADMIT Internal Medicine Nephrology; ATTEND Internal Medicine
PROC: XW033E5 Introduction of Remdesivir Anti-infective into Peripheral Vein, Percutaneous Approach, New Technology Group 5 (ICD-10-PCS; principal; 2020-02-14)
PROC: 8E0ZXY6 Isolation (ICD-10-PCS; 2020-02-14)
DX: U07.1 COVID-19 (principal); J12.89 Other viral pneumonia
CPT/HCPCS: 36415; 71250; 80048; 80053; 83605; 83615; 84484; 85025; 85379; 87040; 96374; 99284; 99285-25; A9270-GY; J1100; J1644; J1956; J7030; J7050

== ENCOUNTER 2021-04-16 14:29 | Emergency (ER) | payer BC, MEDICAID ==
--- NOTE | 2021-04-16 14:42 | EDM.PDOC ---
ED HPI GENERAL MEDICAL PROBLEM - General Chief Complaint: Fever Stated Complaint: COUGH Time Seen by Provider: 04/16/21 14:38 Source of Information: Reports: Patient, Old Records, RN, RN Notes Reviewed History Limitations: Reports: No Limitations - History of Present Illness INITIAL COMMENTS - FREE TEXT/NARRATIVE: Pt presents to ER with c/o cough, fever, runny nose, and body aches that began yesterday. Denies chest pain, abdominal pain, N/V/D, or rash. He states he had COVID about 1 year ago. Onset: Sudden Onset Date: 04/15/21 Duration: Constant Location: Reports: Generalized Quality: Reports: Ache Severity: Moderate Improves with: Reports: None Worsens with: Reports: None Context: Reports: Sick Contact Associated Symptoms: Reports: No Other Symptoms - Related Data Allergies Allergy/AdvReac Type Severity Reaction Status Date / Time No Known Allergies Allergy Verified 04/16/21 14:39 Past Medical History - Past Health History Medical/Surgical History: Denies Medical/Surgical History HEENT History: Reports: None Cardiovascular History: Reports: None Respiratory History: Reports: None Gastrointestinal History: Reports: None Genitourinary History: Reports: None Musculoskeletal History: Reports: None Neurological History: Reports: None Psychiatric History: Reports: None Endocrine/Metabolic History: Reports: None Hematologic History: Reports: None Immunologic History: Reports: None Oncologic (Cancer) History: Reports: None Dermatologic History: Reports: None - Infectious Disease History Infectious Disease History: Reports: Novel Coronavirus Other Infectious Disease History: covid - Past Surgical History Head Surgeries/Procedures: Reports: None Social & Family History - Family History Family Medical History: No Pertinent Family History - Caffeine Use Caffeine Use: Reports: Coffee - Living Situation & Occupation Living situation: Reports: Single, with Family Occupation: Student ED ROS GENERAL - Review of Systems Review Of Systems: Comprehensive ROS is negative, except as noted in HPI. ED EXAM, GENERAL - Physical Exam Exam: See Below Exam Limited By: No Limitations General Appearance: Alert, WD/WN, No Apparent Distress Eye Exam: Bilateral Eye: Normal Inspection Nose: Nasal Drainage, Clear Rhinorrhea Throat/Mouth: Normal Inspection, Normal Lips, Normal Oropharynx, Normal Voice, No Airway Compromise Head: Atraumatic, Normocephalic Neck: Normal Inspection, Supple, Non-Tender, Full Range of Motion. No: Lymphadenopathy (L), Lymphadenopathy (R) Respiratory/Chest: No Respiratory Distress, Lungs Clear, Normal Breath Sounds, No Accessory Muscle Use, Chest Non-Tender, Other (Cough) Cardiovascular: Regular Rate, Rhythm, No Edema GI/Abdominal: Normal Bowel Sounds, Soft, Non-Tender Back Exam: Normal Inspection Extremities: Normal Inspection Neurological: Alert, Oriented, No Motor/Sensory Deficits Psychiatric: Normal Mood Skin Exam: Warm, Dry, Intact, Normal Color, No Rash Course - Vital Signs Last Recorded V/S: Last Vital Signs Temp 98.3 F 04/16/21 14:42 Pulse 106 H 04/16/21 14:42 Resp 20 04/16/21 14:42 BP 156/89 H 04/16/21 14:42 Pulse Ox 98 04/16/21 14:42 - Orders/Labs/Meds Labs: Laboratory Tests 04/16/21 Range/Units 14:22 Influenza Type A RNA Negative (NEGATIVE) Influenza Type B RNA Negative (NEGATIVE) SARS-CoV-2 RNA (KASSIDY) Negative (NEGATIVE) Departure - Departure Time of Disposition: 15:35 Disposition: Home, Self-Care 01 Condition: Good Clinical Impression: URI with cough and congestion - Discharge Information *PRESCRIPTION DRUG MONITORING PROGRAM REVIEWED*: Not Applicable *COPY OF PRESCRIPTION DRUG MONITORING REPORT IN PATIENT DANIEL: Not Applicable Instructions: Viral Respiratory Infection, [id number] Forms: ED Department Discharge Additional Instructions: Rx: Loratadine-D 12HR Frequent saltwater gargles until sore throat, congestion, and cough resolve. Drink plenty of water, Pedialyte, or Gatorade. Follow up in clinic or return to ER if you develop any difficulty breathing. Sepsis Event Note (ED) - Focused Exam Vital Signs: Vital Signs Temp Pulse Resp BP Pulse Ox 04/16/21 14:42 98.3 F 106 H 20 156/89 H 98
[2021-04-16 14:47] VITALS: BP 156/89; PULSE 106
[2021-04-16 15:16] LABS: CORONAVIRUS COVID-19 NAA NEGATIVE (NEGATIVE)
== END 2021-04-16 15:33 | disposition home or self-care (01) ==
LOC: DL.ED 14:29
DX: J06.9 Acute upper respiratory infection, unspecified (principal); Z20.822 Contact with and (suspected) exposure to COVID-19
CPT/HCPCS: 0240U; 99283

== ENCOUNTER 2022-03-16 13:17 | Emergency (ER) | payer MEDICAID ==
[2022-03-16] MEDS ORDERED: Benzonatate 100 MG Cap PO ONE (13:18)
[2022-03-16 13:25] VITALS: BP 144/95; PULSE 102
[2022-03-16 14:23] LABS: CORONAVIRUS COVID-19 NAA POSITIVE (NEGATIVE)
[2022-03-16] MEDS ORDERED: Benzonatate 100 MG Cap ONE (14:54)
== END 2022-03-16 15:04 | disposition home or self-care (01) ==
LOC: DL.ED 13:17
DX: U07.1 COVID-19 (principal); E66.9 Obesity, unspecified; Z68.41 Body mass index [BMI] 40.0-44.9, adult
CPT/HCPCS: 0240U; 71045; 87081; 87430; 99283; A9270